=== PATIENT | male | born 2005 | race Caucasian/White ===

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

== ENCOUNTER 2024-06-15 01:08 | Inpatient (IN) | payer OTHER ==
[2024-06-15] MEDS ORDERED: Morphine 4 MG/ML VIAL ONE ×2 (01:33→02:43)
[2024-06-15] MEDS ORDERED: Ondansetron PF 4 MG/2 ML Vial ONE ×2 (01:33→02:43)
[2024-06-15 01:38] LABS: #Basophils 0.05 10x3/uL (0.0-0.2); %Basophils 0.7 % (0.0-1.0); %Eosinophils 6.8 % (0.0-10.0); %Lymphocytes 18.1 % (28.0-48.0); %Monocytes 6.9 % (0.0-4.0); %Neutrophils 66.7 % (31.0-61.0); Hematocrit 49.4 % (42.0-52.0); Hemoglobin 17.2 g/dL (14.0-18.0); Mean Corpuscular HGB CONC 34.8 g/dL (32.0-36.0); Mean Corpuscular Hemoglobin 27.1 pg (25.0-35.0); Mean Corpuscular Volume 77.8 fL (78.0-98.0); Mean Platelet Volume 10.4 fL (7.4-10.4); Platelet Count 283 10x3/uL (130-400); RBC Distribution Width 13.1 % (11.5-14.5); Red Blood Cell (RBC) Count 6.35 mill/uL (4.00-5.20)
[2024-06-15 02:01] LABS: ALT (SGPT) 13 U/L (8-55); AST (SGOT) 15 U/L (10-45); Albumin 3.7 g/dL (3.5-5.0); Alkaline Phosphatase 66 U/L (50-130); Anion Gap 16 mmol/L (10-20); BUN (Urea Nitrogen) 10 mg/dL (8.4-21.0); Bilirubin, Total 0.7 mg/dL (0.2-1.2); Calc. Creatinine Clearance 0 mL/min (70-130); Calcium 9.1 mg/dL (7.8-10.44); Carbon Dioxide 24 mmol/L (22-29); Chloride 104 mmol/L (98-107); Estimated GFR 131; Globulin 2.5 g/dL (2.4-3.5); Glucose 130 mg/dL (70-105); Potassium 3.7 mmol/L (3.5-5.1); Protein, Total 6.2 g/dL (6.0-8.3); Sodium 140 mmol/L (136-145)
[2024-06-15 02:19] LABS: Lipase Greater than 4815 U/L (8-78)
[2024-06-15] MEDS ORDERED: Ketorolac Tromethamine 30 MG (1 mL) VIAL ONE (03:29)
[2024-06-15] MEDS ORDERED: Ondansetron ODT 4 MG TAB SL PRN (05:00)
[2024-06-15] MEDS: Sodium Chloride 0.9% 1,000 ML IV SCH ×2 (05:09→16:51)
[2024-06-15 05:16] VITALS: BMI 21.0
[2024-06-15] MEDS ORDERED: Acetaminophen 325 MG TAB PO PRN (07:19)
[2024-06-15 07:47] LABS: Cardiac Risk 3.6 (Less than 4.5)
[2024-06-15] MEDS: Famotidine/PF 20 mg/2ml Vial SLOW IVP SCH (07:51)
[2024-06-15] MEDS: Morphine 4 MG/ML VIAL SLOW IVP PRN ×2 (07:56→16:51)
[2024-06-15] MEDS: Ondansetron PF 4 MG/2 ML Vial IVP PRN ×2 (08:02→18:30)
[2024-06-15] MEDS ORDERED: Iopamidol-370 76% 500 ML MDV (1 ML CHARGE) ONE (10:31)
[2024-06-15] MEDS: Ketorolac Tromethamine 30 MG (1 mL) VIAL IVP PRN ×2 (11:28→18:28)
[2024-06-16 06:25] LABS: ALT (SGPT) 6 U/L (8-55); AST (SGOT) 10 U/L (10-45); Albumin 2.8 g/dL (3.5-5.0); Alkaline Phosphatase 50 U/L (50-130); Anion Gap 9 mmol/L (10-20); BUN (Urea Nitrogen) 7 mg/dL (8.4-21.0); Bilirubin, Total 0.8 mg/dL (0.2-1.2); Calc. Creatinine Clearance 171 mL/min (70-130); Carbon Dioxide 24 mmol/L (22-29); Chloride 109 mmol/L (98-107); Estimated GFR 132; Globulin 1.8 g/dL (2.4-3.5); Glucose 96 mg/dL (70-105); Potassium 4.1 mmol/L (3.5-5.1); Protein, Total 4.6 g/dL (6.0-8.3); Sodium 138 mmol/L (136-145)
[2024-06-16 06:40] LABS: Lipase 380 U/L (8-78)
[2024-06-16] MEDS: Lactated Ringer's 1,000 ML IV SCH (15:16)
[2024-06-17 05:48] LABS: #Basophils 0.03 10x3/uL (0.0-0.2); %Basophils 0.5 % (0.0-1.0); %Eosinophils 9.5 % (0.0-10.0); %Lymphocytes 7.6 % (28.0-48.0); %Monocytes 7.5 % (0.0-4.0); %Neutrophils 74.7 % (31.0-61.0); Hematocrit 39.7 % (42.0-52.0); Hemoglobin 13.5 g/dL (14.0-18.0); Mean Corpuscular Hemoglobin 26.8 pg (25.0-35.0); Mean Corpuscular Volume 78.8 fL (78.0-98.0); Mean Platelet Volume 11.2 fL (7.4-10.4); Platelet Count 206 10x3/uL (130-400); RBC Distribution Width 13.1 % (11.5-14.5); Red Blood Cell (RBC) Count 5.04 mill/uL (4.00-5.20)
[2024-06-17 06:03] LABS: ALT (SGPT) 6 U/L (8-55); AST (SGOT) 10 U/L (10-45); Albumin 2.8 g/dL (3.5-5.0); Alkaline Phosphatase 53 U/L (50-130); Anion Gap 10 mmol/L (10-20); BUN (Urea Nitrogen) 5 mg/dL (8.4-21.0); Bilirubin, Total 1.2 mg/dL (0.2-1.2); Calc. Creatinine Clearance 178 mL/min (70-130); Calcium 8.3 mg/dL (7.8-10.44); Carbon Dioxide 26 mmol/L (22-29); Chloride 107 mmol/L (98-107); Estimated GFR 134; Glucose 88 mg/dL (70-105); Lipase 89 U/L (8-78); Potassium 3.7 mmol/L (3.5-5.1); Protein, Total 4.8 g/dL (6.0-8.3); Sodium 139 mmol/L (136-145)
[2024-06-17 07:28] VITALS: TEMP 98.1
[2024-06-17 20:22] VITALS: BP 121/77
[2024-06-18] MEDS ORDERED: FLU (Fluarix Triv) TS24-25(6MOS UP)/PF 45 MCG/0.5 ML Syringe IM ONE (09:00)
== END 2024-06-17 15:47 | disposition home or self-care (01) | DRG 440 ==
LOC: ERS 01:08 → T4-B 04:02
PROVIDERS: ADMIT Student in an Organized Health Care Education/Training Program; ATTEND Internal Medicine
DX: K85.90 Acute pancreatitis without necrosis or infection, unspecified (principal); K86.1 Other chronic pancreatitis; Z91.018 Allergy to other foods; Z98.890 Other specified postprocedural states
CPT/HCPCS: 36415; 74177; 80053; 80061; 83690; 85025; 96361; 96374; 96375; 96376; J1885; J2272; J2405; J3490; J7030; J7120; Q9967

== ENCOUNTER 2024-08-02 10:36 | Inpatient (IN) | payer OTHER ==
[2024-08-02 11:10] LABS: #Basophils 0.04 10x3/uL (0.0-0.2); %Basophils 0.5 % (0.0-1.0); %Eosinophils 11.3 % (0.0-10.0); %Lymphocytes 15.3 % (28.0-48.0); %Monocytes 8.1 % (0.0-4.0); %Neutrophils 64.5 % (31.0-61.0); Hematocrit 52.6 % (42.0-52.0); Hemoglobin 17.7 g/dL (14.0-18.0); Mean Corpuscular HGB CONC 33.7 g/dL (32.0-36.0); Mean Corpuscular Hemoglobin 27.3 pg (25.0-35.0); Mean Platelet Volume 10.9 fL (7.4-10.4); Platelet Count 210 10x3/uL (130-400); Red Blood Cell (RBC) Count 6.49 mill/uL (4.00-5.20)
[2024-08-02 11:30] LABS: ALT (SGPT) 14 U/L (8-55); AST (SGOT) 15 U/L (10-45); Albumin 3.7 g/dL (3.5-5.0); Alkaline Phosphatase 62 U/L (50-130); Anion Gap 14 mmol/L (10-20); BUN (Urea Nitrogen) 12 mg/dL (8.4-21.0); Bilirubin, Total 0.9 mg/dL (0.2-1.2); Calc. Creatinine Clearance 0 mL/min (70-130); Carbon Dioxide 21 mmol/L (22-29); Chloride 109 mmol/L (98-107); Estimated GFR 133; Globulin 2.7 g/dL (2.4-3.5); Glucose 108 mg/dL (70-105); Potassium 4.2 mmol/L (3.5-5.1); Protein, Total 6.4 g/dL (6.0-8.3); Sodium 140 mmol/L (136-145)
[2024-08-02 11:46] LABS: Lipase Greater than 4815 U/L (8-78)
[2024-08-02] MEDS ORDERED: Morphine 2 MG/ML VIAL ONE (11:59)
[2024-08-02] MEDS ORDERED: Ondansetron PF 4 MG/2 ML Vial ONE (11:59)
[2024-08-02] MEDS ORDERED: HYDROmorphone 0.5 MG/0.5 ML SYRINGE ONE (12:35)
[2024-08-02] MEDS ORDERED: Acetaminophen 325 MG TAB PO PRN (13:02)
[2024-08-02] MEDS ORDERED: Acetaminophen 650 MG Suppository PR PRN (13:02)
[2024-08-02] MEDS ORDERED: Electrolyte Replacement Protocol 1 EACH FS SCH (14:00)
[2024-08-02 14:29] LABS: Magnesium 1.8 mg/dL (1.7-2.2)
[2024-08-02] MEDS ORDERED: Electrolyte Replacement Protocol FS PRN (14:45)
[2024-08-02] MEDS: Sodium Chloride 0.9% 1,000 ML IV SCH (15:03)
[2024-08-02 15:19] VITALS: BMI 20.7
[2024-08-02] MEDS: Morphine 4 MG/ML VIAL SLOW IVP PRN (16:07)
[2024-08-02] MEDS: Magnesium 2 GM/50 ML(in water) 2 GM in Premix 1 BAG IVPB SCH (16:55)
[2024-08-02] MEDS: Ondansetron ODT 4 MG TAB PO PRN (17:53)
[2024-08-03] MEDS: Ondansetron PF 4 MG/2 ML Vial IVP PRN (00:56)
[2024-08-03 05:34] LABS: #Basophils Less than 0.03 10x3/uL (0.0-0.2); %Basophils 0.1 % (0.0-1.0); %Lymphocytes 7.1 % (28.0-48.0); %Monocytes 8.9 % (0.0-4.0); %Neutrophils 81.6 % (31.0-61.0); Hematocrit 45.5 % (42.0-52.0); Hemoglobin 15.4 g/dL (14.0-18.0); Mean Corpuscular HGB CONC 33.8 g/dL (32.0-36.0); Mean Corpuscular Hemoglobin 26.9 pg (25.0-35.0); Mean Corpuscular Volume 79.4 fL (78.0-98.0); Mean Platelet Volume 11.4 fL (7.4-10.4); Platelet Count 216 10x3/uL (130-400); RBC Distribution Width 13.9 % (11.5-14.5); Red Blood Cell (RBC) Count 5.73 mill/uL (4.00-5.20)
[2024-08-03 06:12] LABS: ALT (SGPT) 8 U/L (8-55); AST (SGOT) 10 U/L (10-45); Albumin 2.8 g/dL (3.5-5.0); Alkaline Phosphatase 47 U/L (50-130); Anion Gap 10 mmol/L (10-20); BUN (Urea Nitrogen) 9 mg/dL (8.4-21.0); Calc. Creatinine Clearance 185 mL/min (70-130); Calcium 8.3 mg/dL (7.8-10.44); Carbon Dioxide 24 mmol/L (22-29); Chloride 109 mmol/L (98-107); Estimated GFR 136; Globulin 1.7 g/dL (2.4-3.5); Glucose 97 mg/dL (70-105); Potassium 4.3 mmol/L (3.5-5.1); Protein, Total 4.5 g/dL (6.0-8.3); Sodium 139 mmol/L (136-145)
[2024-08-03 06:15] LABS: Lipase 834 U/L (8-78)
[2024-08-03] MEDS: Famotidine 20 MG TAB PO SCH ×2 (12:47→20:22)
[2024-08-04 00:48] VITALS: TEMP 98.3
[2024-08-04 06:33] LABS: ALT (SGPT) 8 U/L (8-55); AST (SGOT) 11 U/L (10-45); Albumin 2.8 g/dL (3.5-5.0); Alkaline Phosphatase 46 U/L (50-130); Anion Gap 11 mmol/L (10-20); BUN (Urea Nitrogen) 7 mg/dL (8.4-21.0); Bilirubin, Total 1.4 mg/dL (0.2-1.2); Calc. Creatinine Clearance 171 mL/min (70-130); Calcium 8.2 mg/dL (7.8-10.44); Carbon Dioxide 26 mmol/L (22-29); Chloride 107 mmol/L (98-107); Estimated GFR 133; Glucose 93 mg/dL (70-105); Lipase 270 U/L (8-78); Potassium 4.6 mmol/L (3.5-5.1); Protein, Total 4.8 g/dL (6.0-8.3); Sodium 139 mmol/L (136-145)
[2024-08-04 07:15] VITALS: BP 107/62
== END 2024-08-04 10:39 | disposition home or self-care (01) | DRG 440 ==
LOC: ERS 10:36 → T4-B 12:55
PROVIDERS: ADMIT Internal Medicine; ATTEND Family Medicine
DX: K85.90 Acute pancreatitis without necrosis or infection, unspecified (principal); K86.1 Other chronic pancreatitis; Z91.018 Allergy to other foods
CPT/HCPCS: 36415; 80053; 83690; 83735; 85025; 96374; 96375; J1171; J2272; J2405; J3475; J7030; Q0162